=== PATIENT | male | born 1940 | race Caucasian/White ===

== ENCOUNTER → 2016-12-31 | Outpatient (CLI) | payer MEDICARE, BC ==
[2016-12-31 10:28] LABS: Blood Urea Nitrogen 21 mg/dL (9-20); Non-African American GFR(MDRD) >60 (>60 ml/min/1.73 sqM)
== END | disposition home or self-care (01) ==
LOC: LABWHC1 09:19
PROVIDERS: ATTEND Physical Medicine & Rehabilitation
DX: Z01.812 Encounter for preprocedural laboratory examination (principal); N28.9 Disorder of kidney and ureter, unspecified; M48.06 Spinal stenosis, lumbar region; M51.36 Other intervertebral disc degeneration, lumbar region; M47.817 Spondylosis without myelopathy or radiculopathy, lumbosacral region; M54.16 Radiculopathy, lumbar region; M54.5 Low back pain
CPT/HCPCS: 36415; 82565; 84520

== ENCOUNTER 2017-09-16 11:01 | Emergency (ER) | payer MEDICARE, BC ==
[2017-09-16 11:09] VITALS: BP 102/66; PULSE 85; RESP 18; TEMP 97.4
--- NOTE | 2017-09-16 11:57 | ED ---
General Adult HPI - General Chief complaint: Abdominal Pain Stated complaint: Constipation Time Seen by Provider: 09/16/17 11:05 Source: patient, RN notes reviewed Mode of arrival: ambulatory Limitations: no limitations - History of Present Illness Initial comments: This is a 77-year-old male presents emergency Department complaining that he's been constant over the last 4 days. Patient states this is been an ongoing problem over since she's been on morphine for his cancer. Patient states takes Senokot every night he also takes MiraLAX at night. Patient states yesterday he took a bottle of mag citrate and he is not having any bowel movements whatsoever. Patient states she's not having any abdominal pain but there is some abdominal pressure. Patient denies any vomiting or nausea. Patient states she's not having any recent fever or chills. Patient denies any chest pain difficulty breathing. - Related Data Home Medications Medication Instructions Recorded Confirmed Tamsulosin HCl [Flomax] 0.4 mg PO DAILY 06/02/17 09/16/17 ALPRAZolam [Xanax] 0.25 - 0.5 mg PO BID PRN 09/16/17 09/16/17 Folic Acid 1 mg PO DAILY 09/16/17 09/16/17 HYDROcodone/APAP 5-325MG [[place] 1 tab PO Q4-6H PRN 09/16/17 09/16/17 5-325] Lactulose 10 gm PO Q6H PRN 09/16/17 09/16/17 Magnesium Citrate [Citrate of 296 ml PO ONCE PRN 09/16/17 09/16/17 Magnesia] Mineral Oil [Fleet Mineral Oil] 133 ml RECTAL ONCE PRN 09/16/17 09/16/17 Morphine Sulfate ER [Ms Contin 15 - 30 mg PO HS 09/16/17 09/16/17 15Mg] Morphine Sulfate ER [Ms Contin] 15 mg PO BID@0800,1600 09/16/17 09/16/17 Ondansetron Odt [Zofran Odt] 4 mg PO Q8H PRN 09/16/17 09/16/17 Polyethylene Glycol 3350 [Miralax] 17 gm PO HS 09/16/17 09/16/17 Sennosides [Senokot] 8.6 - 17.2 mg PO DAILY 09/16/17 09/16/17 Allergies Allergy/AdvReac Type Severity Reaction Status Date / Time No Known Allergies Allergy Verified 09/16/17 11:47 Review of Systems ROS Statement: Those systems with pertinent positive or pertinent negative responses have been documented in the HPI. ROS Other: All systems not noted in ROS Statement are negative. Past Medical History Past Medical History: Asthma, Cancer, Prostate Disorder Additional Past Medical History / Comment(s): recent tumor on vertebrae( removed ), lung ca 3-4 yrs ago(resection done), prostate cancer-44 radiation tx(no sx done),emphysema. History of Any Multi-Drug Resistant Organisms: None Reported Past Surgical History: Back Surgery, Orthopedic Surgery Additional Past Surgical History / Comment(s): left shoulder rotator cuff repair , removal of tumor on spine, pilonidal cyst removed. lung resection d/t cancer 3 -4 years ago Past Anesthesia/Blood Transfusion Reactions: Previous Problems w/ Anesthesia Additional Past Anesthesia/Blood Transfusion Reaction / Comment(s): "my bowels and bladder shut down w/ aa" Past Psychological History: No Psychological Hx Reported Smoking Status: Former smoker Past Alcohol Use History: None Reported Past Drug Use History: None Reported - Past Family History Mother Family Medical History: Dementia Additional Family Medical History / Comment(s): alzhiemers Father History Unknown: Yes Brother(s) Family Medical History: Coronary Artery Disease (CAD) General Exam - General Exam Comments Initial Comments: GENERAL: Patient is well-developed and well-nourished. Patient is nontoxic and well- hydrated and is in no acute distress. ENT: Neck is soft and supple. No significant lymphadenopathy is noted. Oropharynx is clear. Moist mucous membranes. Neck has full range of motion without eliciting any pain. EYES: The sclera were anicteric and conjunctiva were pink and moist. Extraocular movements were intact and pupils were equal round and reactive to light. Eyelids were unremarkable. PULMONARY: Unlabored respirations. Good breath sounds bilaterally. No audible rales rhonchi or wheezing was noted. CARDIOVASCULAR: There is a regular rate and rhythm without any murmurs gallops or rubs. ABDOMEN: No abdominal tenderness. SKIN: Skin is clear with no lesions or rashes and otherwise unremarkable. NEUROLOGIC: Patient is alert and oriented x3. Cranial nerves II through XII are grossly intact. Motor and sensory are also intact. Normal speech, volume and content. Symmetrical smile. MUSCULOSKELETAL: Normal extremities with adequate strength and full range of motion. LYMPHATICS: No significant lymphadenopathy is noted PSYCHIATRIC: Normal psychiatric evaluation. Limitations: no limitations Course Vital Signs 09/16/17 11:05 Temperature 97.4 F L Pulse Rate 85 Respiratory 18 Rate Blood Pressure 102/66 O2 Sat by Pulse 95 Oximetry Medical Decision Making - Medical Decision Making KUB shows no acute normalities however there is a fair amount of stool. Patient got an enema and had a moderate bowel movement in the emergency department Disposition Clinical Impression: Constipation Disposition: HOME SELF-CARE Condition: Good Instructions: High Fiber Diet (ED), Constipation (ED) Referrals: Sury Beard MD [Primary Care Provider] - 1-2 days Time of Disposition: 13:39
--- NOTE | 2017-09-16 12:20 | XR ---
EXAMINATION TYPE: XR KUB DATE OF EXAM: 09/16/2017 COMPARISON: 04/10/2012 HISTORY: Pain TECHNIQUE: Single supine KUB image of the abdomen is obtained FINDINGS: Small bowel demonstrates no evidence for dilatation or air fluid levels. Gas and fecal material is seen in non-distended colon. No convincing evidence for pneumoperitoneum. 3 mm calculus overlies the mid pole of the left kidney. The lung bases are clear. The osseous structures are intact. Prostate calcifications noted. IMPRESSION: 1. Overall nonobstructive bowel gas pattern. 2. Left-sided nephrolithiasis.
== END 2017-09-16 13:57 | disposition home or self-care (01) ==
LOC: EC 11:01
DX: K59.00 Constipation, unspecified (principal); N42.9 Disorder of prostate, unspecified; Z87.891 Personal history of nicotine dependence; Z79.899 Other long term (current) drug therapy; Z85.46 Personal history of malignant neoplasm of prostate; Z85.118 Personal history of other malignant neoplasm of bronchus and lung; Z86.018 Personal history of other benign neoplasm
CPT/HCPCS: 74018; 99284

== ENCOUNTER 2018-01-06 10:14 | Emergency (ER) | payer MEDICARE, BC ==
[2018-01-06] MEDS ORDERED: SODIUM CHLORIDE 0.9% 500 ML IV STA (10:37)
[2018-01-06] MEDS ORDERED: KETOROLAC 60 MG/2 ML VIAL IVP STA (10:38)
[2018-01-06] MEDS ORDERED: ACETAMINOPHEN TAB 500 MG TAB PO STA (10:38)
--- NOTE | 2018-01-06 10:44 | ED ---
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 Patient comes in today because he started having left-sided chest pain that was very sharp in nature and lasts only 1-2 seconds but it's very strong when it comes. Patient states seems to be worse when he exhales. Patient states movement also makes it worse. Patient denies any fever or chills. Patient states occasionally has a cough. Patient states his only short of breath if he gets up and moves around. Patient denies any constant chest pain. Patient denies any lightheadedness dizziness or near syncopal episode - Related Data Home Medications Medication Instructions Recorded Confirmed Tamsulosin HCl [Flomax] 0.4 mg PO DAILY 06/02/17 01/06/18 ALPRAZolam [Xanax] 0.25 - 0.5 mg PO Q12H PRN 09/16/17 01/06/18 Folic Acid 1 mg PO DAILY 09/16/17 01/06/18 HYDROcodone/APAP 5-325MG [[place] 1 tab PO Q6H PRN 09/16/17 01/06/18 5-325] Morphine Sulfate ER [Ms Contin 15 mg PO TID 09/16/17 01/06/18 15Mg] Ondansetron Odt [Zofran Odt] 4 mg PO Q8H PRN 09/16/17 01/06/18 Polyethylene Glycol 3350 [Miralax] 17 gm PO HS 09/16/17 01/06/18 Sennosides [Senokot] 8.6 - 17.2 mg PO DAILY 09/16/17 01/06/18 Megestrol [Megace] 400 mg PO DAILY 01/06/18 01/06/18 Morphine Sulfate 20 mg PO Q2H PRN 01/06/18 01/06/18 Rivaroxaban [Xarelto Starter Pack] See Taper PO DIRECTED 01/06/18 01/06/18 predniSONE 10 mg PO DAILY 01/06/18 01/06/18 Allergies Allergy/AdvReac Type Severity Reaction Status Date / Time No Known Allergies Allergy Verified 01/06/18 10:50 Review of Systems ROS Statement: Those systems with pertinent positive or pertinent negative responses have been documented in the HPI. ROS Other: All systems not noted in ROS Statement are negative. Past Medical History Past Medical History: Asthma, Cancer, Prostate Disorder Additional Past Medical History / Comment(s): recent tumor on vertebrae( removed ), lung ca 3-4 yrs ago(resection done), prostate cancer-44 radiation tx(no sx done),emphysema. History of Any Multi-Drug Resistant Organisms: None Reported Past Surgical History: Back Surgery, Orthopedic Surgery Additional Past Surgical History / Comment(s): left shoulder rotator cuff repair , removal of tumor on spine, pilonidal cyst removed. lung resection d/t cancer 3 -4 years ago Past Anesthesia/Blood Transfusion Reactions: Previous Problems w/ Anesthesia Additional Past Anesthesia/Blood Transfusion Reaction / Comment(s): "my bowels and bladder shut down w/ aa" Past Psychological History: No Psychological Hx Reported Smoking Status: Former smoker Past Alcohol Use History: None Reported Past Drug Use History: None Reported - Past Family History Mother Family Medical History: Dementia Additional Family Medical History / Comment(s): alzhiemers Father History Unknown: Yes Brother(s) Family Medical History: Coronary Artery Disease (CAD) General Exam - General Exam Comments Initial Comments: GENERAL: Patient is well-developed but in moderate distress when the pain strikes him. ENT: Neck is soft and supple. No significant lymphadenopathy is noted. Oropharynx is clear. Moist mucous membranes. Neck has full range of motion without eliciting any pain. EYES: The sclera were anicteric and conjunctiva were pink and moist. Extraocular movements were intact and pupils were equal round and reactive to light. Eyelids were unremarkable. PULMONARY: Unlabored respirations. Good breath sounds bilaterally. No audible rales rhonchi or wheezing was noted. CARDIOVASCULAR: There is a regular rate and rhythm without any murmurs gallops or rubs. ABDOMEN: Soft and nontender with normal bowel sounds. No palpable organomegaly was noted. There is no palpable pulsatile mass. SKIN: Skin is clear with no lesions or rashes and otherwise unremarkable. NEUROLOGIC: Patient is alert and oriented x3. Cranial nerves II through XII are grossly intact. Motor and sensory are also intact. Normal speech, volume and content. Symmetrical smile. MUSCULOSKELETAL: Normal extremities with adequate strength and full range of motion. LYMPHATICS: No significant lymphadenopathy is noted PSYCHIATRIC: Normal psychiatric evaluation. Normal interpersonal interactions appears functionally intact in deals appropriately with others. Limitations: no limitations Course Vital Signs 01/06/18 01/06/18 01/06/18 10:21 10:33 11:03 Temperature 98.6 F 100.3 F H Pulse Rate 89 90 86 Respiratory 18 18 18 Rate Blood Pressure 100/53 108/55 121/60 O2 Sat by Pulse 98 98 98 Oximetry 01/06/18 01/06/18 12:11 13:38 Temperature 98.9 F Pulse Rate 85 84 Respiratory 17 16 Rate Blood Pressure 114/55 101/51 O2 Sat by Pulse 94 L 92 L Oximetry Medical Decision Making - Medical Decision Making EKG shows normal sinus rhythm at 86 bpm ID interval is 1:30 QRS is 80 QT interval [address] chest shows no PE. Patient had Toradol shot which completely eliminated any sharp chest pain that he was having. - Lab Data Result diagrams: 01/06/18 10:30 01/06/18 10:30 Lab Results 01/06/18 01/06/18 01/06/18 Range/Units 10:30 10:30 10:30 WBC 7.9 (3.8-10.6) k/uL RBC 3.16 L (4.30-5.90) m/uL Hgb 9.7 L (13.0-17.5) gm/dL Hct 30.3 L (39.0-53.0) % MCV 95.7 (80.0-100.0) fL MCH 30.6 (25.0-35.0) pg MCHC 32.0 (31.0-37.0) g/dL RDW 18.6 H (11.5-15.5) % Plt Count 236 (150-450) k/uL Neutrophils % 85 % Lymphocytes % 4 % Monocytes % 7 % Eosinophils % 1 % Basophils % 0 % Neutrophils # 6.7 (1.3-7.7) k/uL Lymphocytes # 0.3 L (1.0-4.8) k/uL Monocytes # 0.6 (0-1.0) k/uL Eosinophils # 0.1 (0-0.7) k/uL Basophils # 0.0 (0-0.2) k/uL Hypochromasia Slight Anisocytosis Slight Macrocytosis Slight PT (9.0-12.0) sec INR (<1.2) APTT (22.0-30.0) sec Sodium 139 (137-145) mmol/L Potassium 3.9 (3.5-5.1) mmol/L Chloride 106 (98-107) mmol/L Carbon Dioxide 24 (22-30) mmol/L Anion Gap 9 mmol/L BUN 13 (9-20) mg/dL Creatinine 0.45 L (0.66-1.25) mg/dL Est GFR (CKD-EPI)AfAm >90 (>60 ml/min/1.73 sqM) Est GFR (CKD-EPI)NonAf >90 (>60 ml/min/1.73 sqM) Glucose 93 (74-99) mg/dL Plasma Lactic Acid Delbert (0.7-2.0) mmol/L Calcium 8.1 L (8.4-10.2) mg/dL Magnesium 2.1 (1.6-2.3) mg/dL Total Bilirubin 0.4 (0.2-1.3) mg/dL AST 27 (17-59) U/L ALT 44 (21-72) U/L Alkaline Phosphatase 208 H (38-126) U/L Total Creatine Kinase 40 L (55-170) U/L CK-MB (CK-2) 1.8 (0.0-2.4) ng/mL CK-MB (CK-2) Rel Index 4.5 Troponin I 0.014 (0.000-0.034) ng/mL NT-Pro-B Natriuret Pep pg/mL Total Protein 5.2 L (6.3-8.2) g/dL Albumin 2.8 L (3.5-5.0) g/dL 01/06/18 01/06/18 01/06/18 Range/Units 10:30 10:30 10:45 WBC (3.8-10.6) k/uL RBC (4.30-5.90) m/uL Hgb (13.0-17.5) gm/dL Hct (39.0-53.0) % MCV (80.0-100.0) fL MCH (25.0-35.0) pg MCHC (31.0-37.0) g/dL RDW (11.5-15.5) % Plt Count (150-450) k/uL Neutrophils % % Lymphocytes % % Monocytes % % Eosinophils % % Basophils % % Neutrophils # (1.3-7.7) k/uL Lymphocytes # (1.0-4.8) k/uL Monocytes # (0-1.0) k/uL Eosinophils # (0-0.7) k/uL Basophils # (0-0.2) k/uL Hypochromasia Anisocytosis Macrocytosis PT 11.0 (9.0-12.0) sec INR 1.1 (<1.2) APTT 26.0 (22.0-30.0) sec Sodium (137-145) mmol/L Potassium (3.5-5.1) mmol/L Chloride (98-107) mmol/L Carbon Dioxide (22-30) mmol/L Anion Gap mmol/L BUN (9-20) mg/dL Creatinine (0.66-1.25) mg/dL Est GFR (CKD-EPI)AfAm (>60 ml/min/1.73 sqM) Est GFR (CKD-EPI)NonAf (>60 ml/min/1.73 sqM) Glucose (74-99) mg/dL Plasma Lactic Acid Delbert 1.2 (0.7-2.0) mmol/L Calcium (8.4-10.2) mg/dL Magnesium (1.6-2.3) mg/dL Total Bilirubin (0.2-1.3) mg/dL AST (17-59) U/L ALT (21-72) U/L Alkaline Phosphatase (38-126) U/L Total Creatine Kinase (55-170) U/L CK-MB (CK-2) (0.0-2.4) ng/mL CK-MB (CK-2) Rel Index Troponin I (0.000-0.034) ng/mL NT-Pro-B Natriuret Pep 230 pg/mL Total Protein (6.3-8.2) g/dL Albumin (3.5-5.0) g/dL Disposition Clinical Impression: Chest wall pain Disposition: HOME SELF-CARE Condition: Good Instructions: Chest Wall Pain (ED) Additional Instructions: Patient should take Motrin when necessary for the pain. Patient should take magnesium citrate and drink lots of fluid if he has any issues with constipation Is patient prescribed a controlled substance at d/c from ED?: No Referrals: Sury Beard MD [Primary Care Provider] - 1-2 days Time of Disposition: 13:53
[2018-01-06 10:53] LABS: Anisocytosis Slight; Basophils % (A) 0 %; Eosinophils # (A) 0.1 k/uL (0-0.7); Eosinophils % (A) 1 %; HCT 30.3 % (39.0-53.0); HGB 9.7 gm/dL (13.0-17.5); Hypochromasia Slight; Lymphocytes # (A) 0.3 k/uL (1.0-4.8); Lymphocytes % (A) 4 %; MCH 30.6 pg (25.0-35.0); MCV 95.7 fL (80.0-100.0); Macrocytosis Slight; Mean Platelet Volume 7.1; Monocytes # (A) 0.6 k/uL (0-1.0); Monocytes % (A) 7 %; Neutrophils # (A) 6.7 k/uL (1.3-7.7); Neutrophils % (A) 85 %; Platelet Count 236 k/uL (150-450); RBC 3.16 m/uL (4.30-5.90); RDW 18.6 % (11.5-15.5); WBC 7.9 k/uL (3.8-10.6)
[2018-01-06 10:59] LABS: INR 1.1 (<1.2)
[2018-01-06 11:28] LABS: ALT 44 U/L (21-72); AST 27 U/L (17-59); Albumin 2.8 g/dL (3.5-5.0); Alkaline Phosphatase 208 U/L (38-126); Anion Gap 9 mmol/L; Blood Urea Nitrogen 13 mg/dL (9-20); Calcium 8.1 mg/dL (8.4-10.2); Carbon Dioxide 24 mmol/L (22-30); Chloride 106 mmol/L (98-107); Glucose 93 mg/dL (74-99); Magnesium 2.1 mg/dL (1.6-2.3); Potassium 3.9 mmol/L (3.5-5.1); Sodium 139 mmol/L (137-145); Total Bilirubin 0.4 mg/dL (0.2-1.3); Total Protein 5.2 g/dL (6.3-8.2)
[2018-01-06 11:38] LABS: Creatine Kinase MB 1.8 ng/mL (0.0-2.4); Troponin I 0.014 ng/mL (0.000-0.034)
--- NOTE | 2018-01-06 13:40 | CT ---
EXAMINATION TYPE: CT chest angio for PE DATE OF EXAM: 01/06/2018 COMPARISON: CT chest 05/06/2015 HISTORY: Chest pain CT DLP: 213.00 mGycm CONTRAST: CT chest with contrast and 3D reconstruction with MIP imaging is performed with IV Contrast, patient injected with 100 ml mL of Isovue 370. Contrast-enhanced CT of the chest was performed through the course of the pulmonary arteries with ramu g and mediastinal window settings submitted. 3D reconstruction with MIP imaging was also performed. PULMONARY ARTERIES: The pulmonary arteries and their major tributaries are patent. I do not see norberto dence for sizable filling defect to suggest pulmonary embolic process. LUNGS: Previously noted right upper lobe pulmonary nodule is no longer visible and this may reflect p ost surgical intervention. There is right suprahilar soft tissue density measuring 2.3 x 1.5 cm and t his may reflect adenopathy or mass. Infiltrate of other etiology is not excluded. Continued follow-up is advised. Small right-sided pleural effusion. Compressive atelectasis right lower lobe. Calcified pulmonary nodule right upper lobe. MEDIASTINUM: Thoracic aorta is of normal caliber,however, evaluation is limited given timing of the contrast bolus. If there is concern for thoracic aortic pathology consider HAIDER. Correlate clinicall y . The heart is not enlarged. No evidence for mediastinal mass. No mediastinal lymph nodes greater than 1cm. HILAR STRUCTURES: No evidence for mass. No hilar lymph nodes greater than 1 cm. UPPER ABDOMEN: No significant abnormality is seen. IMPRESSION: 1. No evidence for Pulmonary embolism at this time. 2. Soft tissue right suprahilar region may reflect mass or adenopathy. Consider PET/CT if felt to be indicated. 3. Previously noted right upper lobe pulmonary nodule is not redemonstrated at this time. Calcified n odule right upper lobe noted.
[2018-01-06 13:42] VITALS: RESP 16
[2018-01-06 14:30] VITALS: BP 95/65; PULSE 79; TEMP 98.1
== END 2018-01-06 14:40 | disposition home or self-care (01) ==
LOC: EC 10:14
DX: R07.89 Other chest pain (principal); R05 Cough; R06.02 Shortness of breath; N42.9 Disorder of prostate, unspecified; Z87.891 Personal history of nicotine dependence; Z85.46 Personal history of malignant neoplasm of prostate; Z85.118 Personal history of other malignant neoplasm of bronchus and lung; Z79.891 Long term (current) use of opiate analgesic; Z79.01 Long term (current) use of anticoagulants; Z79.899 Other long term (current) drug therapy; Z79.52 Long term (current) use of systemic steroids
CPT/HCPCS: 36415; 93005; 83880; 80053; 82550; 82553; 83605; 83735; 84484; 85025; 85610; 85730; 87040; 71275; 99285; 96374; J1885; Q9967